=== PATIENT | female | born 1960 | race Caucasian/White ===

== ENCOUNTER → 2016-07-31 | Outpatient (CLI) | payer OTHER ==
[~2016-07-31] MED LIST: ATIVAN1 MG PO; B-121000 MCG PO; BENICAR5 MG PO; CELEXA40 MG PO; CIPRO500 MG PO; CIPRODEX 0.3%-7.5 ML OT; CIPROFLOXACIN500 MG PO; CLARITIN10 MG PO; COLCHICINE0.6 M1 PO; COMPAZINE10 MG PO; COUMADIN4 M2 PO; COZAAR50 M1 PO; CYCLOBENZAPRINE5 M3 PO; Coumadin3 MG PO; DAYPRO600 M1 PO; DICLOFENAC SOD75 MG PO; DOXYCYCLINE100 M3 PO; DYAZIDE 25 MG-31 CAP PO; EFFEXOR XR150 M1 PO; FETZIMA PO; FETZIMA80 M1 PO; FIORICET 325 MG1 TAB PO; FLEXERIL10 MG PO; FLONASE0.05 MG/AC NS; FLUTICASON0.05 MG/Ac NAS; HYDROCODONE BIT1 T11 PO; HYTRIN1 M1 PO; IMITREX100 MG PO; IMITREX6 MG/0.5 M SC; K-DUR 1010 MEQ PO; KEFLEX500 MG PO; KLONOPIN1 M1 PO; KLONOPIN1 MG PO; LAMICTAL100 MG PO; LAMICTAL150 MG PO; LAMICTAL200 MG PO; LASIX20 MG PO; LASIX40 MG PO; LASIX80 MG PO; LEVAQUIN750 M1 PO; LISINOPRIL10 MG PO; LISINOPRIL5 MG PO; LOPRESSOR50 MG PO; LYRICA50 MG PO; MEDROL DOSEPAK4 MG PO; METOPROLOL SUCC50 M1 PO; MOTRIN800 MG PO; MUCINEX100 MG PO; Motrin,Rufen800 MG PO; NEURONTIN300 MG PO; NEURONTIN400 MG PO; NIZORAL; NORCO 325 MG-51 TAB PO; NORCO 5-325 TA1 EACH PO; NORCO 7.5-3251 EACH PO; Nizoral 2%15 GM PO; ONDANSETRON4 MG SL; OPANA10 MG PO; PANTOPRAZOLE SO40 MG PO; PENICILLIN-VK500 M1 PO; PERCOCET 325 MG1 TA2 PO; PERCOCET 325 MG1 TA5 PO; PERCOCET 325 MG1 TA7 PO; POTASSIUM CHLO20 ME3 PO; PREDNISONE10 MG PO; PREDNISONE50 MG PO; PRENAPLUS PO; PRILOSEC20 MG PO; PROAIR HFA0.09 MG/AC IH; PROVERA2.5 MG PO; PYRIDIUM200 MG PO; QUETIAPINE FUM200 M1 PO; QVAR 80MCG/INH7.3 G1 IH; QVAR PO; QVAR0.08 MG/AC INH; ROBAXIN500 M1 PO; SEROQUEL XR150 MG PO; SEROQUEL XR400 MG PO; SIMVASTATIN20 MG PO; SINGULAIR10 MG PO; SKELAXIN800 MG PO; SPIRONOLACTONE25 MG PO; TOPAMAX200 MG PO; TOPAMAX25 M1 PO; TRAMADOL HCL50 MG PO; ULTRAM50 MG PO; VENTOLIN H0.09 MG/AC INH; VICO75300 PO; VICODIN; VICODIN 5/500 505 MG PO; VICODIN 500 MG-1 TAB PO; VISTARIL25 M1 PO; VITAMIN B PO; VITAMIN C500 M4 PO; VOL-PLUS TABLE1 EACH PO; XANAX XR3 MG PO; XARE20MG PO; XARELTO15 M1 PO; ZANTAC 150150 MG PO; ZOFRAN ODT4 MG SL; ZOFRAN4 MG PO
== END | disposition home or self-care (01) ==
LOC: RAD 15:30
DX: J18.9 Pneumonia, unspecified organism (principal); J45.909 Unspecified asthma, uncomplicated; J20.9 Acute bronchitis, unspecified; R05 Cough; R52 Pain, unspecified; I10 Essential (primary) hypertension

== ENCOUNTER → 2016-11-23 | Outpatient (CLI) | payer OTHER | END | disposition home or self-care (01) | LOC: RAD 12:09 | DX: M47.896 Other spondylosis, lumbar region (principal); M47.817 Spondylosis without myelopathy or radiculopathy, lumbosacral region; I10 Essential (primary) hypertension; M79.604 Pain in right leg; R20.0 Anesthesia of skin; R53.1 Weakness; Z87.09 Personal history of other diseases of the respiratory system ==

== ENCOUNTER → 2017-01-18 | Day surgery (SDC) | payer OTHER ==
[~2017-01-18] VITALS: Ht 167.6 cm; Wt 111.6 kg
[~2017-01-18] MED LIST changes: +OMEPRAZOLE D/R20 MG PO
--- NOTE | ~2017-01-18 | O ---
[place], [place] OPERATIVE NOTE NAME: SAMANTHA WYMAN UNIT #: [id number] ROOM: DOCTOR: CURTIS SANDOVAL MD BIRTHDATE: [birth year] DOS: 01/18/2017 HISTORY: The patient is a 56-year-old who has presented with abdominal pain, undergoing investigation. PROCEDURE: Today's procedure part of investigation is colonoscopy. PREMEDICATION: Versed and Diprivan. SCOPE: Olympus forward-viewing colonoscope 10L video. REPORT: After putting the patient in the left lateral position and after application of lubricant to the scope, the scope was introduced. Thereafter, under direct visualization, advanced through the length of colon with difficulty. Difficulty being some retained flecks of stool in addition to redundancy and tortuosity of the colon. I was able to negotiate the scope to mid ascending colon with the entire length of the scope and at this stage, the scope was withdrawn. The patient extubated, tolerated procedure well. IMPRESSION: Redundant colon, tortuous colon. PLAN AND DISCUSSION: We are going to proceed with a be today and clinical reassessment. Thank you very much indeed. Workup in progress. CURTIS SANDOVAL MD CM:OPRECORD:OPERATIVE NOTE 1155 [id number] CURTIS SANDOVAL MD 01/18/17 1347 interface
--- NOTE | ~2017-01-18 | O ---
[place], [place] OPERATIVE NOTE NAME: SAMANTHA WYMAN UNIT #: [id number] ROOM: DOCTOR: CURTIS SANDOVAL MD BIRTHDATE: [birth year] DOS: 01/18/2017 GASTROENDOSCOPIC REPORT. INDICATIONS: The patient is a 56-year-old patient who has presented with a colonoscopy in 2009 with colonic polyp, gastritis, dyspepsia, left lower quadrant pain. PAST SURGICAL HISTORY: , bilateral knee, gallbladder. PAST MEDICAL HISTORY: Pulmonary embolism, on Xarelto; GERD; pneumonia; spinal stenosis; migraines cephalalgia; anxiety and neuropathy. SOCIAL HISTORY: Nonsmoker, nonalcohol consumer. PROCEDURE: Todays' procedure part of investigation is panendoscopy and colonoscopy. PREMEDICATION: Versed and Diprivan. SCOPE: Olympus forward-viewing gastroscope Q10 video. REPORT: After putting the patient in the left lateral position and after application of lubricant to the scope, the scope was introduced. Thereafter, under direct visualization, I advanced through the length of the esophagus without difficulty. Small hiatal hernia noticed. Gastric pouch was entered. Gastritis seen. Duodenal bulb, second and third part within normal limits. Antral biopsy obtained. The patient extubated, tolerated procedure well. IMPRESSION: Gastritis, small hiatal hernia. PLAN AND DISCUSSION: We are going to start her on Omeprazole 20 mg every day. On the other hand, we are going to proceed with colonoscopic evaluation. Thank you very much indeed for your kind referral. [place], [place] OPERATIVE NOTE NAME: SAMANTHA WYMAN UNIT #: [id number] ROOM: DOCTOR: CURTIS SANDOVAL MD BIRTHDATE: [birth year] CURTIS SANDOVAL MD CM:OPRECORD:OPERATIVE NOTE 1155 [id number] CURTIS SANDOVAL MD 01/18/17 1340 interface
[2017-01-18 10:11] VITALS: BP 137/78
[2017-01-18 11:42] VITALS: BP 158/120
[2017-01-18 11:57] VITALS: BP 118/69
[2017-01-18 12:12] VITALS: BP 135/74
== END | disposition home or self-care (01) ==
LOC: SDC 01-15 08:00
DX: K29.50 Unspecified chronic gastritis without bleeding (principal); K63.89 Other specified diseases of intestine; Z86.010 Personal history of colon polyps; K44.9 Diaphragmatic hernia without obstruction or gangrene; K21.9 Gastro-esophageal reflux disease without esophagitis; I11.0 Hypertensive heart disease with heart failure; Z87.01 Personal history of pneumonia (recurrent); F41.9 Anxiety disorder, unspecified; G43.909 Migraine, unspecified, not intractable, without status migrainosus; Z86.711 Personal history of pulmonary embolism; F32.9 Major depressive disorder, single episode, unspecified; I50.9 Heart failure, unspecified; E78.00 Pure hypercholesterolemia, unspecified; F43.10 Post-traumatic stress disorder, unspecified; Z80.9 Family history of malignant neoplasm, unspecified; Z83.3 Family history of diabetes mellitus; Z87.891 Personal history of nicotine dependence

== ENCOUNTER → 2017-06-20 | Outpatient (CLI) | payer OTHER ==
[2017-06-20 15:07] LABS: BASO % 0.7 % (0.0-1.0); EOS # 0.3 10*3/uL (0.0-0.4); EOS % 4.7 % (1.0-4.0); HEMATOCRIT 40.8 % (37.0-47.0); HEMOGLOBIN 13.1 g/dl (12.0-16.0); LYMPH # 1.9 10*3/uL (1.3-4.4); MEAN CELL VOLUME 93.6 fl (81.0-99.0); MEAN CORPUSCULAR HGB CONC 32.1 g/dl (33.0-37.0); MONO # 0.6 10*3/uL (0.1-1.0); MONO % 10.8 % (3.0-9.0); NEUT % 50.5 % (47.0-73.0); PLATELET COUNT AUTOMATED 253 10*3/uL (130-400); RED BLOOD COUNT 4.36 10*6/uL (4.10-5.10); RED CELL DISTRI WIDTH 13.2 % (0-14.5); WHITE BLOOD COUNT 5.9 10*3/uL (4.8-10.8)
[2017-06-20 15:25] LABS: ALBUMIN 3.8 gm/dl (3.1-4.5); ALKALINE PHOSPHATASE 143 U/L (45-117); BUN 14 mg/dl (7-24); CHLORIDE 109 mmol/L (98-107); CREATININE 0.82 mg/dL (0.55-1.02); POTASSIUM 3.4 mmol/L (3.5-5.1); SGOT/AST 12 IU/L (3-35); SGPT/ALT 19 U/L (12-78); SODIUM 145 mmol/L (136-145); TOTAL PROTEIN 7.4 gm/dL (6.4-8.2)
== END | disposition home or self-care (01) ==
LOC: LAB 13:42
PROVIDERS: Family Medicine
DX: D64.9 Anemia, unspecified (principal); E87.6 Hypokalemia; I50.32 Chronic diastolic (congestive) heart failure

== ENCOUNTER → 2017-07-09 | Outpatient (CLI) | payer OTHER | END | disposition home or self-care (01) | LOC: CARD 06-28 11:30 | DX: I26.99 Other pulmonary embolism without acute cor pulmonale (principal); R06.02 Shortness of breath ==

== ENCOUNTER 2017-09-06 15:17 | Emergency (ER) | payer OTHER ==
[~2017-09-06] VITALS: Ht 165.1 cm; Wt 113.4 kg
[2017-09-06 16:07] LABS: BASO % 0.9 % (0.0-1.0); EOS # 0.2 10*3/uL (0.0-0.4); EOS % 3.4 % (1.0-4.0); HEMATOCRIT 45.9 % (37.0-47.0); HEMOGLOBIN 14.7 g/dl (12.0-16.0); LYMPH # 1.5 10*3/uL (1.3-4.4); LYMPH % 34.1 % (27.0-41.0); MEAN CELL VOLUME 92.4 fl (81.0-99.0); MEAN CORPUSCULAR HGB 29.6 pg (27.0-31.0); MONO # 0.4 10*3/uL (0.1-1.0); MONO % 9.2 % (3.0-9.0); NEUT # 2.3 10*3/uL (2.3-7.9); NEUT % 52.2 % (47.0-73.0); PLATELET COUNT AUTOMATED 235 10*3/uL (130-400); RED BLOOD COUNT 4.97 10*6/uL (4.10-5.10); RED CELL DISTRI WIDTH 13.9 % (0-14.5); WHITE BLOOD COUNT 4.4 10*3/uL (4.8-10.8)
[2017-09-06 16:15] LABS: ACT PARTIAL THROMBO TIME 27.9 SECONDS (20.8-31.5)
[2017-09-06 16:23] LABS: ALBUMIN 4.4 gm/dl (3.1-4.5); ALKALINE PHOSPHATASE 113 U/L (45-117); BUN 9 mg/dl (7-24); CHLORIDE 113 mmol/L (98-107); CREATININE 0.91 mg/dL (0.55-1.02); LIPASE 114 U/L (73-393); POTASSIUM 3.7 mmol/L (3.5-5.1); SGOT/AST 15 IU/L (3-35); SGPT/ALT 25 U/L (12-78); SODIUM 144 mmol/L (136-145); TOTAL PROTEIN 7.5 gm/dL (6.4-8.2); TROPONIN I < 0.015 ng/ml (<0.045)
== END 2017-09-06 18:23 | disposition short-term general hospital (02) ==
LOC: ED 15:17
PROVIDERS: Physician Assistant
DX: I48.92 Unspecified atrial flutter (principal); I13.0 Hypertensive heart and chronic kidney disease with heart failure and stage 1 through stage 4 chronic kidney disease, or unspecified chronic kidney disease; N18.2 Chronic kidney disease, stage 2 (mild); I50.30 Unspecified diastolic (congestive) heart failure; G43.909 Migraine, unspecified, not intractable, without status migrainosus; K21.9 Gastro-esophageal reflux disease without esophagitis; J44.9 Chronic obstructive pulmonary disease, unspecified; E66.01 Morbid (severe) obesity due to excess calories; Z88.6 Allergy status to analgesic agent; Z79.899 Other long term (current) drug therapy

== ENCOUNTER → 2017-11-20 | Outpatient (CLI) | payer OTHER | END | disposition home or self-care (01) | LOC: RAD 12:30 | DX: M48.02 Spinal stenosis, cervical region (principal); M51.37 Other intervertebral disc degeneration, lumbosacral region; M50.30 Other cervical disc degeneration, unspecified cervical region; M51.36 Other intervertebral disc degeneration, lumbar region ==

== ENCOUNTER → 2018-02-04 | Outpatient (CLI) | payer OTHER | END | disposition home or self-care (01) | LOC: MAMMO 02:00 | DX: Z12.31 Encounter for screening mammogram for malignant neoplasm of breast (principal) ==

== ENCOUNTER 2019-04-29 19:15 | Emergency (ER) | payer OTHER ==
[~2019-04-29] VITALS: Wt 109.8 kg
[2019-04-29 20:25] LABS: BASO % 0.6 % (0.0-1.0); EOS # 0.1 10*3/uL (0.0-0.4); EOS % 1.7 % (1.0-4.0); HEMATOCRIT 46.8 % (37.0-47.0); HEMOGLOBIN 15.1 g/dl (12.0-16.0); LYMPH # 1.5 10*3/uL (1.3-4.4); LYMPH % 20.3 % (27.0-41.0); MEAN CELL VOLUME 92.5 fl (81.0-99.0); MEAN CORPUSCULAR HGB 29.8 pg (27.0-31.0); MEAN CORPUSCULAR HGB CONC 32.3 g/dl (33.0-37.0); MEAN PLATELET VOLUME 9.5 fl (9.6-12.3); MONO # 0.7 10*3/uL (0.1-1.0); MONO % 10.2 % (3.0-9.0); NEUT # 4.8 10*3/uL (2.3-7.9); NEUT % 66.6 % (47.0-73.0); PLATELET COUNT AUTOMATED 276 10*3/uL (130-400); RED BLOOD COUNT 5.06 10*6/uL (4.10-5.10); RED CELL DISTRI WIDTH 13.2 % (0-14.5); WHITE BLOOD COUNT 7.3 10*3/uL (4.8-10.8)
[2019-04-29 20:41] LABS: ALBUMIN 4.3 gm/dl (3.1-4.5); ALKALINE PHOSPHATASE 94 U/L (45-117); BUN 17 mg/dl (7-24); CHLORIDE 110 mmol/L (98-107); CREATININE 0.88 mg/dL (0.55-1.02); POTASSIUM 3.5 mmol/L (3.5-5.1); SGOT/AST 9 IU/L (3-35); SGPT/ALT 25 U/L (12-78); SODIUM 142 mmol/L (136-145); TOTAL PROTEIN 7.5 gm/dL (6.4-8.2)
[2019-04-29 20:46] LABS: BILIRUBIN 1+ (NEGATIVE); BLOOD NEGATIVE (NEGATIVE); CLARITY SL CLOUDY (CLEAR); COLOR YELLOW (YELLOW); GLUCOSE NEGATIVE (NEGATIVE); KETONE 2+ (NEGATIVE); LEUKO ESTERASE 1+ (NEGATIVE); NITRITE NEGATIVE (NEGATIVE); SPECIFIC GRAVITY >= 1.030 (1.005-1.030); UROBILINOGEN 0.2 E.U./dl (0.2-1.0)
[2019-04-29 20:51] LABS: BACTERIA TRACE; MUCOUS 2+; WBC 16-20 wbc/hpf (0-5)
[2019-04-29 20:52] LABS: CALCIUM OXALATE CRYSTALS 1+; EPITHELIAL CELLS 16-20
== END 2019-04-30 03:21 | disposition home or self-care (01) ==
LOC: ED 19:15
PROVIDERS: Emergency Medicine
DX: A08.4 Viral intestinal infection, unspecified (principal); R19.7 Diarrhea, unspecified; R11.2 Nausea with vomiting, unspecified; J44.9 Chronic obstructive pulmonary disease, unspecified; K21.9 Gastro-esophageal reflux disease without esophagitis; E66.01 Morbid (severe) obesity due to excess calories; G40.909 Epilepsy, unspecified, not intractable, without status epilepticus; I13.0 Hypertensive heart and chronic kidney disease with heart failure and stage 1 through stage 4 chronic kidney disease, or unspecified chronic kidney disease; N18.2 Chronic kidney disease, stage 2 (mild); I50.30 Unspecified diastolic (congestive) heart failure; Z88.8 Allergy status to other drugs, medicaments and biological substances; Z79.899 Other long term (current) drug therapy; Z90.49 Acquired absence of other specified parts of digestive tract

== ENCOUNTER 2019-09-16 18:25 | Observation (INO) | payer OTHER ==
[~2019-09-16] VITALS: Ht 167.6 cm; Wt 111.6 kg
[2019-09-16 18:33] VITALS: BP 134/62
[2019-09-16 18:51] LABS: BASO # 0.1 10*3/uL (0.0-0.1); BASO % 0.8 % (0.0-1.0); EOS # 0.2 10*3/uL (0.0-0.4); EOS % 2.7 % (1.0-4.0); HEMATOCRIT 42.6 % (37.0-47.0); LYMPH % 32.6 % (27.0-41.0); MEAN CELL VOLUME 91.6 fl (81.0-99.0); MEAN CORPUSCULAR HGB 30.1 pg (27.0-31.0); MEAN CORPUSCULAR HGB CONC 32.9 g/dl (33.0-37.0); MEAN PLATELET VOLUME 9.7 fl (9.6-12.3); MONO # 0.7 10*3/uL (0.1-1.0); MONO % 12.4 % (3.0-9.0); NEUT % 50.8 % (47.0-73.0); PLATELET COUNT AUTOMATED 264 10*3/uL (130-400); RED BLOOD COUNT 4.65 10*6/uL (4.10-5.10); RED CELL DISTRI WIDTH 12.4 % (0-14.5)
[2019-09-16 19:02] LABS: ACT PARTIAL THROMBO TIME 32.5 SECONDS (20.0-32.1); INTERNATIONAL NORM RATIO 1.1 (2.0-3.5)
[2019-09-16 19:18] VITALS: BP 119/66
--- NOTE | 2019-09-16 19:18 | NUR ---
NURSE TO NURSE REPORT GIVEN TO THIS RN.
--- NOTE | 2019-09-16 19:18 | NUR ---
MD CRESPO AT BEDSIDE.
[2019-09-16 19:25] LABS: ALBUMIN 4.1 gm/dl (3.1-4.5); ALKALINE PHOSPHATASE 99 U/L (45-117); BUN 18 mg/dl (7-24); CHLORIDE 110 mmol/L (98-107); CREATININE 0.98 mg/dL (0.55-1.02); POTASSIUM 3.7 mmol/L (3.5-5.1); SGOT/AST 11 IU/L (3-35); SGPT/ALT 20 U/L (12-78); SODIUM 145 mmol/L (136-145); TOTAL PROTEIN 7.1 gm/dL (6.4-8.2)
[2019-09-16 19:27] LABS: TROPONIN I < 0.015 ng/ml (<0.045)
--- NOTE | 2019-09-16 20:10 | NUR ---
PT C/O HEADACHE CAUSING HER TO FEEL NAUSEA.MD CRESPO NOTIFIED.
--- NOTE | 2019-09-16 20:39 | NUR ---
INFUSION OF PHENERGAN COMPLETED.HEPLOCK IN PLACE.LIGHTS DIMMED FOR COMFORT.WARM BLANKET PROVIDED.
[2019-09-16 21:02] VITALS: BP 147/68
--- NOTE | 2019-09-16 21:34 | NUR ---
SECOND EKG COMPLETED AND RESULTS GIVEN TO MD CRESPO FOR REVIEW.
--- NOTE | 2019-09-16 21:34 | NUR ---
PT REPORTS RELIEF FROM NAUSEA AND SOME RELIEF FROM HEADACHE AFTER MEDICATION OF PHENERGAN.PT STATES STILL HAS HEADACHE AND DENIES CHEST PAIN AT THIS TIME.PT REPORTS HX OF CHRONIC BACK PAIN.
[2019-09-16 21:44] VITALS: BP 136/51
--- NOTE | 2019-09-16 22:01 | NUR ---
PT MEDICATED PER EMAR WITH 2MG MORPHINE FOR HEADACHE.
--- NOTE | 2019-09-16 22:21 | NUR ---
SBAR FAXED TO UNIT.
--- NOTE | 2019-09-16 22:44 | NUR ---
PT TO UNIT AT THIS TIME.
--- NOTE | 2019-09-16 22:50 | NUR ---
A 59, admitted OBSERVATION PATIENT to , under the services of MONISHA Nicolas DO with a diagnosis of CHEST PAIN. Chief complaint is CHEST PAIN, HEADACHE AND BACK PAIN. Patient arrived via stretcher from ER. Monitor applied. Initial assessment completed. Vital signs taken and recorded. MONISHA NICOLAS DO notified of admission to the unit. Orders received. See assessment for past medical history, medications and allergies. Patient and/or family oriented to unit. [facility] visitation policy reviewed. Clothing/patient valuable form completed. CORY SMITH
--- NOTE | 2019-09-17 00:11 | NUR ---
PATIENT MEDICATED WITH NORCO PER PRN ORDER FOR C/O BACK/CHEST AND HEADACHE. RATED PAIN A 7/10 WITH 10 BEING THE WORST.SEE EMAR. REINFORCED USE OF CALL LIGHT.
[2019-09-17] MEDS ORDERED: 'CLONIDINE0.1 MG PO (00:40)
[2019-09-17] MEDS ORDERED: VISTARIL50 MG PO (00:41)
[2019-09-17] MEDS ORDERED: ROZEREM8 MG PO (00:54)
[2019-09-17] MEDS ORDERED: ZANAFLEX4 M2 PO (00:55)
[2019-09-17] MEDS ORDERED: BUSPIRONE30 MG PO (00:55)
[2019-09-17] MEDS ORDERED: SUMATRIPTAN SU100 M1 PO (00:57)
--- NOTE | 2019-09-17 00:58 | NUR ---
MED REC UPDATED WITH PILLS BROUGHT FROM HOME.
--- NOTE | 2019-09-17 01:00 | NUR ---
PATIENT RESTING QUIETLY. NO FURTHER C/O VOICED.
--- NOTE | 2019-09-17 03:01 | NUR ---
MESSAGE LEFT WITH SLADE AT ANSWERING SERVICE TO NOTIFY DR NG OF CONSULT PER ORDER.
--- NOTE | 2019-09-17 04:41 | NUR ---
PATIENT MEDICATED WITH MORPHINE PER PRN ORDER FOR C/O BACK/NECK AND HEADACHE. RATED PAIN A 7 /10 WITH 10 BEING THE WORST. SEE EMAR. REINFORCED USE OF CALL LIGHT.
[2019-09-17 05:49] LABS: BUN 17 mg/dl (7-24); CHLORIDE 109 mmol/L (98-107); CHOLESTEROL 199 mg/dL (<200); CREATININE 0.96 mg/dL (0.55-1.02); FREE T4 0.78 ng/dl (0.76-1.46); HDL CHOLESTEROL 60 mg/dl (40-60); LDL CHOLESTEROL 125 mg/dL (9-159); POTASSIUM 3.4 mmol/L (3.5-5.1); SODIUM 144 mmol/L (136-145); TRIGLYCERIDES 72 mg/dl (<150); VLDL CHOLESTEROL 14 mg/dL (6-40)
[2019-09-17 06:26] LABS: BASO % 0.7 % (0.0-1.0); EOS # 0.2 10*3/uL (0.0-0.4); EOS % 3.5 % (1.0-4.0); HEMATOCRIT 43.1 % (37.0-47.0); LYMPH # 2.4 10*3/uL (1.3-4.4); MEAN CELL VOLUME 91.9 fl (81.0-99.0); MEAN CORPUSCULAR HGB 29.9 pg (27.0-31.0); MEAN CORPUSCULAR HGB CONC 32.5 g/dl (33.0-37.0); MEAN PLATELET VOLUME 10.1 fl (9.6-12.3); MONO # 0.6 10*3/uL (0.1-1.0); MONO % 10.4 % (3.0-9.0); NEUT # 2.2 10*3/uL (2.3-7.9); NEUT % 40.5 % (47.0-73.0); PLATELET COUNT AUTOMATED 264 10*3/uL (130-400); RED BLOOD COUNT 4.69 10*6/uL (4.10-5.10); RED CELL DISTRI WIDTH 12.5 % (0-14.5); WHITE BLOOD COUNT 5.4 10*3/uL (4.8-10.8)
[2019-09-17 07:39] LABS: VITAMIN D, 25-HYDROXY 24.3 ng/mL (30-100)
[2019-09-17 08:00] VITALS: BP 132/58
--- NOTE | 2019-09-17 08:38 | NUR ---
PT MEDICATED WITH NORCO REQUESTED / CALLED AND SPOKE WITH MARIA FERNANDA Caldwell IN [facility] REGARDING GIVING THE NORCO PRIOR TO STRESS TEST. OK TO GIVE
--- NOTE | 2019-09-17 09:00 | NUR ---
Certified Home Health Aide in to talk to patient. Patient states lives at home with family. There are no steps in the home. Physician: resident clinic [facility]acy: [facility] Home health services: none Patient's level of ADLs: INDEPENDENT Patient has working utilities: all working DME: none Follow-up physician's appointment after d/c: will be made by hospitalist nurse director upon discharge Does patient want to access PORTAL?: no Discharge plan discussed with patient, she lives at home with family, is independent in adls and ambulation, she states she will return home when medically stable and denies any home needs, patient stated she does not drive but uses [employer] service when she gets groceries or doctor's appointments. she also stated her family drives and can also take her places, family will transport patient home when medically stable, case management will follow. ELVER TAPIA
--- NOTE | 2019-09-17 11:15 | NUR ---
INFORMED CONSENT OBTAINED FOR LEXISCAN NUCLEAR STRESS TEST WITH DR. GARCIA. RESTING EKG RBBB WITH A RESTING HR OF 71 WITH BP 108/82. LUNGS CLEAR WITH SPO2 OF 95% ON ROOM AIR. PT COMPLETED A 1:00 LEXISCAN PROTOCOL RECEIVING LEXISCAN 0.4 MG IV OVER 10 SECONDS. HAD NO CHEST PAIN OR ANY EKG CHANGES. HAD C/O "ODD FEELING" THAT SUBSIDED IN RECOVERY. HAD A PEAK HR OF 93 WITH BP OF 118/68. LAST RECOVERY HR OF 87 WITH BP OF 108/72. AWAITING SCANNING IN STABLE CONDITION.
--- NOTE | 2019-09-17 13:28 | NUR ---
PT C/O RIGHT SIDE PAIN . DR BIRM[place]HAM NOTIFIED
[2019-09-17 16:00] VITALS: BP 140/61
--- NOTE | 2019-09-17 17:47 | NUR ---
Discharge instructions reviewed with patient/family. Patient receptive and verbalizes understanding. Follow-up care arranged. Written instructions given to patient/family. SULTANA ELIZONDO
== END 2019-09-17 18:24 | disposition home or self-care (01) ==
LOC: ED 18:25 → 4E 21:47 → EDHOLD 21:47 → 4E 22:19
PROVIDERS: Emergency Medicine; Internal Medicine; ADMIT Internal Medicine
DX: R07.2 Precordial pain (principal); E87.8 Other disorders of electrolyte and fluid balance, not elsewhere classified; J44.9 Chronic obstructive pulmonary disease, unspecified; E83.41 Hypermagnesemia; F41.9 Anxiety disorder, unspecified; F32.9 Major depressive disorder, single episode, unspecified; G40.909 Epilepsy, unspecified, not intractable, without status epilepticus; K21.9 Gastro-esophageal reflux disease without esophagitis; E66.01 Morbid (severe) obesity due to excess calories; G47.33 Obstructive sleep apnea (adult) (pediatric); F43.10 Post-traumatic stress disorder, unspecified; Z86.711 Personal history of pulmonary embolism; I12.9 Hypertensive chronic kidney disease with stage 1 through stage 4 chronic kidney disease, or unspecified chronic kidney disease; N18.3 Chronic kidney disease, stage 3 (moderate)

== ENCOUNTER 2019-11-07 13:40 | Emergency (ER) | payer OTHER ==
[~2019-11-07] VITALS: Ht 165.1 cm; Wt 113.4 kg
[~2019-11-07 13:40] MED LIST changes: +'CLONIDINE0.1 MG PO; +BUSPIRONE30 MG PO; +ROZEREM8 MG PO; +SUMATRIPTAN SU100 M1 PO; +VISTARIL50 MG PO; +ZANAFLEX4 M2 PO
== END 2019-11-07 17:10 | disposition home or self-care (01) ==
LOC: ED 13:40
DX: S00.93XA Contusion of unspecified part of head, initial encounter (principal); S30.0XXA Contusion of lower back and pelvis, initial encounter; S40.012A Contusion of left shoulder, initial encounter; F41.9 Anxiety disorder, unspecified; F32.9 Major depressive disorder, single episode, unspecified; I11.0 Hypertensive heart disease with heart failure; I50.9 Heart failure, unspecified; G43.909 Migraine, unspecified, not intractable, without status migrainosus; E78.00 Pure hypercholesterolemia, unspecified; Z88.8 Allergy status to other drugs, medicaments and biological substances; Z79.899 Other long term (current) drug therapy; X58.XXXA Exposure to other specified factors, initial encounter; Y93.89 Activity, other specified; Y92.89 Other specified places as the place of occurrence of the external cause; Y99.8 Other external cause status

== ENCOUNTER 2023-02-22 19:46 | Emergency (ER) | payer OTHER ==
[~2023-02-22] VITALS: Ht 167.6 cm; Wt 111.1 kg
[2023-02-22] MEDS ORDERED: ATIVAN1 MG PO (20:04)
[2023-02-22] MEDS ORDERED: ZANAFLEX4 M2 PO (20:04)
[2023-02-22] MEDS ORDERED: LASIX20 MG PO (20:05)
[2023-02-22] MEDS ORDERED: XARE20MG PO (20:05)
[2023-02-22] MEDS ORDERED: GABAPENTIN800 MG PO (20:05)
[2023-02-22] MEDS ORDERED: CLONIDINE HCL0.1 MG PO (20:06)
[2023-02-22] MEDS ORDERED: SEROQUEL XR300 MG PO (20:07)
[2023-02-22] MEDS ORDERED: DULCOLAX STOOL100 MG PO (20:07)
[2023-02-22] MEDS ORDERED: LAMICTAL XR200 MG PO (20:07)
[2023-02-22] MEDS ORDERED: VENLAFAXINE150 MG PO (20:08)
[2023-02-22] MEDS ORDERED: RISPERIDONE1 MG PO (20:08)
[2023-02-22 20:25] LABS: BASO % 0.6 % (0.0-1.0); EOS # 0.3 10*3/uL (0.0-0.4); LYMPH # 1.7 10*3/uL (1.3-4.4); LYMPH % 32.6 % (27.0-41.0); MEAN CELL VOLUME 91.3 fl (81.0-99.0); MEAN CORPUSCULAR HGB 30.3 pg (27.0-31.0); MEAN CORPUSCULAR HGB CONC 33.2 g/dl (33.0-37.0); MEAN PLATELET VOLUME 9.9 fl (9.6-12.3); MONO # 0.6 10*3/uL (0.1-1.0); MONO % 11.3 % (3.0-9.0); NEUT # 2.6 10*3/uL (2.3-7.9); NEUT % 49.1 % (47.0-73.0); PLATELET COUNT AUTOMATED 230 10*3/uL (130-400); RED BLOOD COUNT 4.49 10*6/uL (4.10-5.10); RED CELL DISTRI WIDTH 12.4 % (0-14.5); WHITE BLOOD COUNT 5.3 10*3/uL (4.8-10.8)
[2023-02-22 20:36] LABS: ACT PARTIAL THROMBO TIME 27.4 SECONDS (20.0-32.1)
[2023-02-22 20:49] LABS: ALKALINE PHOSPHATASE 124 U/L (46-116); BUN 11 mg/dl (9-23); CHLORIDE 107 mmol/L (98-107); LIPASE 44 U/L (12-53); POTASSIUM 3.6 mmol/L (3.4-5.1); TOTAL PROTEIN 6.7 gm/dL (6.0-8.0)
[2023-02-22 20:50] LABS: SGPT/ALT < 7 U/L (5-49)
[2023-02-22] MEDS ORDERED: CYCLOBENZAPRINE5 M3 PO (22:45)
== END 2023-02-22 22:49 | disposition home or self-care (01) ==
LOC: ED 19:46
PROVIDERS: Internal Medicine
DX: M54.50 Low back pain, unspecified (principal); Z88.8 Allergy status to other drugs, medicaments and biological substances; Z79.899 Other long term (current) drug therapy; Z98.890 Other specified postprocedural states; Z90.49 Acquired absence of other specified parts of digestive tract; Z96.653 Presence of artificial knee joint, bilateral

== ENCOUNTER 2025-03-20 17:02 | Emergency (ER) | payer OTHER ==
[~2025-03-20] VITALS: Ht 165.1 cm; Wt 106.6 kg
[~2025-03-20 17:02] MED LIST changes: +CLONIDINE HCL0.1 MG PO; +DULCOLAX STOOL100 MG PO; +GABAPENTIN800 MG PO; +LAMICTAL XR200 MG PO; +RISPERIDONE1 MG PO; +SEROQUEL XR300 MG PO; +VENLAFAXINE150 MG PO
[2025-03-20] MEDS ORDERED: diazePAM 5 MG TAB PO ONE (17:35)
[2025-03-20] MEDS ORDERED: Dexamethasone Sodium Phospha 20 MG/5 ML VIAL IM ONE (17:35)
[2025-03-20] MEDS ORDERED: PREDNISONE20 M1 PO (17:38)
[2025-03-20] MEDS ORDERED: METHOCARBAMOL750 M1 PO (17:38)
[2025-03-20] MEDS ORDERED: HYDROmorphONE Hydrochloride 0.5 MG/0.5 ML SYRINGE IM ONE (17:40)
[2025-03-20] MEDS ORDERED: Ondansetron Hydrochloride 4 MG TAB PO ONE (17:40)
== END 2025-03-20 18:01 | disposition home or self-care (01) ==
LOC: ED 17:02
DX: M54.41 Lumbago with sciatica, right side (principal); F41.9 Anxiety disorder, unspecified; F32.A Depression, unspecified; K21.9 Gastro-esophageal reflux disease without esophagitis; I11.0 Hypertensive heart disease with heart failure; I50.9 Heart failure, unspecified; G43.909 Migraine, unspecified, not intractable, without status migrainosus; E78.00 Pure hypercholesterolemia, unspecified; Z98.890 Other specified postprocedural states; Z90.49 Acquired absence of other specified parts of digestive tract; Z96.653 Presence of artificial knee joint, bilateral; Z88.5 Allergy status to narcotic agent; Z88.8 Allergy status to other drugs, medicaments and biological substances; Z88.6 Allergy status to analgesic agent; Z87.442 Personal history of urinary calculi